=== PATIENT | female | born 1980 | race Caucasian/White ===

== ENCOUNTER 2017-07-14 08:20 | Emergency (ER) | payer OTHER ==
[~2017-07-14] VITALS: Ht 167.6 cm; Wt 81.2 kg
[~2017-07-14 08:20] MED LIST: ACETAMINOPHEN-1 EAC1 PO; ADVAIR 250-501 EACH IH; DOXYCYCLINE HY100 MG PO; ERY-TAB333 MG PO; HYDROCHLOROTH12.5 M1 PO; HYDROCHLOROTH12.5 MG PO; IBUPROFEN800 MG PO; KEFLEX500 MG PO; MELOXICAM15 MG PO; NORCO 5-325 TA1 EACH PO; PROVENTIL HFA6.7 GM INH; PROZAC10 MG PO; TRAMADOL HCL50 MG PO
[2017-08-07] MEDS ORDERED: ACETAMINOPHEN500 M4 PO (05:30)
[2017-08-07] MEDS ORDERED: IBUPROFEN200 MG PO (05:31)
[2017-08-07] MEDS ORDERED: AMOXICILLIN500 MG PO (05:46)
== END 2017-07-14 08:53 | disposition home or self-care (01) ==
LOC: ED 08:20
DX: S43.402A Unspecified sprain of left shoulder joint, initial encounter (principal); F41.9 Anxiety disorder, unspecified; F43.10 Post-traumatic stress disorder, unspecified; I10 Essential (primary) hypertension; J45.909 Unspecified asthma, uncomplicated; F17.200 Nicotine dependence, unspecified, uncomplicated; Z79.899 Other long term (current) drug therapy; X50.9XXA Other and unspecified overexertion or strenuous movements or postures, initial encounter; Y92.69 Other specified industrial and construction area as the place of occurrence of the external cause; Y99.0 Civilian activity done for income or pay
CPT/HCPCS: 99282

== ENCOUNTER → 2017-08-07 | Emergency (ER) | payer BC ==
[~2017-08-07] VITALS: Ht 167.6 cm; Wt 83.9 kg
[~2017-08-07] MED LIST changes: +ACETAMINOPHEN500 M4 PO; +AMOXICILLIN500 MG PO; +IBUPROFEN200 MG PO
== END ==
LOC: ED 05:18
DX: J02.9 Acute pharyngitis, unspecified (principal); F41.9 Anxiety disorder, unspecified; F43.10 Post-traumatic stress disorder, unspecified; I10 Essential (primary) hypertension; F17.200 Nicotine dependence, unspecified, uncomplicated
CPT/HCPCS: 87081; 87880; 99283

== ENCOUNTER 2017-12-29 21:26 | Emergency (ER) | payer BC ==
[~2017-12-29] VITALS: Ht 167.6 cm; Wt 81.7 kg
[2017-12-29] MEDS ORDERED: LISINOPRIL20 MG PO (21:41)
[2017-12-29] MEDS ORDERED: DICLOFENAC SODI75 MG PO (22:24)
[2017-12-29] MEDS ORDERED: CYCLOBENZAPRINE10 MG PO (22:24)
== END 2017-12-29 22:48 | disposition home or self-care (01) ==
LOC: ED 21:26
DX: M54.5 Low back pain (principal); I10 Essential (primary) hypertension; J45.909 Unspecified asthma, uncomplicated; F17.200 Nicotine dependence, unspecified, uncomplicated; Z79.899 Other long term (current) drug therapy
CPT/HCPCS: 99283

== ENCOUNTER 2018-02-21 08:20 | Emergency (ER) | payer OTHER, BC ==
[~2018-02-21] VITALS: Ht 167.6 cm; Wt 81.7 kg
[~2018-02-21 08:20] MED LIST changes: +CYCLOBENZAPRINE10 MG PO; +DICLOFENAC SODI75 MG PO; +LISINOPRIL20 MG PO
== END 2018-02-21 09:00 | disposition home or self-care (01) ==
LOC: ED 08:20
DX: S61.211A Laceration without foreign body of left index finger without damage to nail, initial encounter (principal); W26.8XXA Contact with other sharp object(s), not elsewhere classified, initial encounter; F41.9 Anxiety disorder, unspecified; F43.10 Post-traumatic stress disorder, unspecified; I10 Essential (primary) hypertension; F17.200 Nicotine dependence, unspecified, uncomplicated; Z79.899 Other long term (current) drug therapy
CPT/HCPCS: 99282

== ENCOUNTER 2018-04-18 12:26 | Emergency (ER) | payer OTHER, BC ==
[~2018-04-18] VITALS: Ht 167.6 cm; Wt 81.7 kg
[2018-04-18] MEDS ORDERED: NEURONTIN300 MG PO (15:11)
== END 2018-04-18 12:48 | disposition home or self-care (01) ==
LOC: ED 12:26
DX: M25.512 Pain in left shoulder (principal)

== ENCOUNTER 2018-04-18 13:36 | Emergency (ER) | payer OTHER, BC ==
[~2018-04-18] VITALS: Ht 167.6 cm; Wt 81.7 kg
[2018-04-18] MEDS ORDERED: NEURONTIN300 MG PO (15:11)
== END 2018-04-18 15:37 | disposition home or self-care (01) ==
LOC: ED 13:36
DX: S43.402A Unspecified sprain of left shoulder joint, initial encounter (principal); X58.XXXA Exposure to other specified factors, initial encounter; F41.9 Anxiety disorder, unspecified; F30.10 Manic episode without psychotic symptoms, unspecified; I10 Essential (primary) hypertension; F17.200 Nicotine dependence, unspecified, uncomplicated; Z79.899 Other long term (current) drug therapy
CPT/HCPCS: 73030; 99283

== ENCOUNTER 2018-12-06 17:52 | Emergency (ER) | payer OTHER ==
[~2018-12-06] VITALS: Ht 167.6 cm; Wt 85.7 kg
[~2018-12-06 17:52] MED LIST changes: +NEURONTIN300 MG PO; +ZOFRAN ODT4 MG PO
[2018-12-06] MEDS ORDERED: GUAIFENESIN AC473 ML PO (20:25)
[2018-12-06] MEDS ORDERED: TAMIFLU75 MG PO (20:25)
== END 2018-12-06 20:55 | disposition home or self-care (01) ==
LOC: ED 17:52
DX: J10.1 Influenza due to other identified influenza virus with other respiratory manifestations (principal); F41.9 Anxiety disorder, unspecified; F43.10 Post-traumatic stress disorder, unspecified; I10 Essential (primary) hypertension; F17.200 Nicotine dependence, unspecified, uncomplicated; Z79.899 Other long term (current) drug therapy
CPT/HCPCS: 87502; 99283

== ENCOUNTER 2018-12-13 21:52 | Emergency (ER) | payer OTHER ==
[~2018-12-13] VITALS: Ht 167.6 cm; Wt 86.2 kg
[~2018-12-13 21:52] MED LIST changes: +GUAIFENESIN AC473 ML PO; +TAMIFLU75 MG PO
--- OUTSIDE RECORDS SUMMARY | 2018-12-13 21:56 | XMS ---
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 Felicia VISIT COUNT (12 MO.) [address] [place] [address] TOTAL 7 NOTE: Visits indicate total known visits. ED/UCC VISIT TRACKING (12 MO.) 12/13/2018 21:53 [facility] TYPE: Emergency COMPLAINT: - LEFT MIDDLE FINGER INJURY 12/06/2018 17:53 [facility] TYPE: Emergency COMPLAINT: - COLD SYMPTOMS DIAGNOSES: - Cough - Nicotine dependence, unspecified, uncomplicated - Post-traumatic stress disorder, unspecified - Essential (primary) hypertension - Influenza due to other identified influenza virus with other respiratory manifestations - Other [facility] (current) drug therapy - Anxiety disorder, unspecified 07/20/2018 02:02 [facility] [place] TYPE: Emergency COMPLAINT: - POST OP VOMITING DIAGNOSES: - Adverse effect of unspecified anesthetic, initial encounter - Anxiety disorder, unspecified - Nausea with vomiting, unspecified - Essential (primary) hypertension - 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 - Acute gastritis without bleeding - Nicotine dependence, unspecified, uncomplicated - Post-traumatic stress disorder, unspecified 04/18/2018 13:37 [facility] TYPE: Emergency COMPLAINT: - L SHOULDER INJURY DIAGNOSES: - Exposure to other specified factors, initial encounter - Essential (primary) hypertension - 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 - Unspecified sprain of left shoulder joint, initial encounter - Pain in left shoulder - Manic episode without psychotic symptoms, unspecified - Anxiety disorder, unspecified - Nicotine dependence, unspecified, uncomplicated 04/18/2018 12:27 [facility] TYPE: Emergency COMPLAINT: - L SHOUDLER PAIN DIAGNOSES: - Pain in left shoulder 02/21/2018 08:21 [facility] TYPE: Emergency COMPLAINT: - L FOREFINGER LAC DIAGNOSES: - Laceration without foreign body of left index finger without damage to nail, initial encounter - Contact with other sharp object(s), not elsewhere classified, initial encounter - Nicotine dependence, unspecified, uncomplicated - Anxiety disorder, unspecified - Essential (primary) hypertension - CONTACT WITH OTHER SHARP OBJECT(S), NEC, INITIAL E - Post-traumatic stress disorder, unspecified - Other [facility] (current) drug therapy 12/29/2017 21:27 [facility] TYPE: Emergency COMPLAINT: - BACK PAIN,NON INJURY DIAGNOSES: - Low back pain - Nicotine dependence, unspecified, uncomplicated - Other [facility] (current) drug therapy - Essential (primary) hypertension - Unspecified asthma, uncomplicated INPATIENT VISIT TRACKING (12 MO.) No inpatient visits to display in this time frame [email or web address]
== END 2018-12-13 22:58 | disposition home or self-care (01) ==
LOC: ED 21:52
DX: S61.213A Laceration without foreign body of left middle finger without damage to nail, initial encounter (principal); F41.9 Anxiety disorder, unspecified; F43.10 Post-traumatic stress disorder, unspecified; I10 Essential (primary) hypertension; F17.200 Nicotine dependence, unspecified, uncomplicated; W32.0XXA Accidental handgun discharge, initial encounter
CPT/HCPCS: 73140; 99283-25